=== PATIENT | female | born 1990 | race Caucasian/White ===

== ENCOUNTER 2016-03-26 12:40 | Inpatient (IN) | payer MEDICAID ==
[~2016-03-26] VITALS: Ht 157.4 cm; Wt 54.2 kg
[2016-03-26 14:11] LABS: BASO % 0.6 % (0.0-1.0); EOS # 0.1 10*3/uL (0.0-0.4); EOS % 1.9 % (1.0-4.0); HEMATOCRIT 39.3 % (37.0-47.0); HEMOGLOBIN 13.9 g/dl (12.0-16.0); LYMPH # 2.9 10*3/uL (1.3-4.4); LYMPH % 46.4 % (27.0-41.0); MEAN CELL VOLUME 89.9 fl (81.0-99.0); MEAN CORPUSCULAR HGB 31.8 pg (27.0-31.0); MEAN CORPUSCULAR HGB CONC 35.4 g/dl (33.0-37.0); MEAN PLATELET VOLUME 10.3 fl (9.6-12.3); MONO # 0.4 10*3/uL (0.1-1.0); NEUT # 2.8 10*3/uL (2.3-7.9); NEUT % 43.9 % (47.0-73.0); PLATELET COUNT AUTOMATED 199 10*3/uL (130-400); RED BLOOD COUNT 4.37 10*6/uL (4.10-5.10); RED CELL DISTRI WIDTH 12.2 % (0-14.5); WHITE BLOOD COUNT 6.3 10*3/uL (4.8-10.8)
[2016-03-26 14:22] LABS: PROTHROMBIN TIME 10.7 SECONDS (9.0-12.4)
[2016-03-26 14:33] LABS: ALBUMIN 3.9 gm/dl (3.1-4.5); ALKALINE PHOSPHATASE 66 U/L (45-117); BILIRUBIN, TOTAL 0.4 mg/dl (0.2-1.0); BUN 9 mg/dl (7-24); CARBON DIOXIDE 28 mmol/L (21-32); CHLORIDE 104 mmol/L (98-107); EST GLOM FILT AFRICAN AMERICAN > 60 ml/min; GLUCOSE 72 mg/dL (65-99); POTASSIUM 3.7 mmol/L (3.5-5.1); SGOT/AST 12 IU/L (3-35); SGPT/ALT 15 U/L (12-78); SODIUM 141 mmol/L (136-145)
[2016-03-26 14:33] LABS: BILIRUBIN NEGATIVE (NEGATIVE); BLOOD TRACE-INTACT (NEGATIVE); CLARITY SL CLOUDY (CLEAR); COLOR YELLOW (YELLOW); GLUCOSE NEGATIVE (NEGATIVE); KETONE NEGATIVE (NEGATIVE); LEUKO ESTERASE 1+ (NEGATIVE); NITRITE NEGATIVE (NEGATIVE); PH 5.5 (5.0-9.0); PROTEIN NEGATIVE (NEGATIVE); SPECIFIC GRAVITY 1.015 (1.005-1.030); UROBILINOGEN 0.2 E.U./dl (0.2-1.0)
[2016-03-26 14:43] LABS: BACTERIA 3+; EPITHELIAL CELLS 15-20; URINE REFLEX COMMENT YES (NO); WBC 16-20 wbc/hpf (0-5)
[2016-03-26 14:44] LABS: URINE AMPHETAMINES > 1000 (1000ng/ml); URINE BARBITURATES < 200 (200ng/ml); URINE COCAINE < 300 (300ng/ml)
[2016-03-26 15:45] VITALS: BP 90/52
[2016-03-26 20:00] VITALS: BP 101/60
[2016-03-27] VITALS: BP 78/53; BP 80/58
[2016-03-27 04:00] VITALS: BP 84/50
[2016-03-27 08:00] VITALS: BP 90/54
[2016-03-27 12:00] VITALS: BP 87/54
[2016-03-27 16:00] VITALS: BP 95/45
[2016-03-27 20:00] VITALS: BP 92/59
[2016-03-28] VITALS: BP 101/56
[2016-03-28 08:00] VITALS: BP 98/56
[2016-03-28 12:00] VITALS: BP 91/59
[2016-03-28] MEDS ORDERED: ZOFRAN 4 MG ED2 TAB PO (14:51)
[2016-03-28] MEDS ORDERED: CARBIDOPA/LEVOD1 TA1 PO (14:51)
[2016-03-28] MEDS ORDERED: ATARAX,VISTARIL50 MG PO (14:51)
[2016-03-28 16:00] VITALS: BP 103/52
[2016-03-28 20:00] VITALS: BP 95/67
[2016-03-29] VITALS: BP 92/48
[2016-03-29 06:09] LABS: BASO % 0.3 % (0.0-1.0); EOS # 0.1 10*3/uL (0.0-0.4); EOS % 1.4 % (1.0-4.0); HEMATOCRIT 43.2 % (37.0-47.0); HEMOGLOBIN 14.6 g/dl (12.0-16.0); LYMPH # 1.9 10*3/uL (1.3-4.4); LYMPH % 30.9 % (27.0-41.0); MEAN CELL VOLUME 92.1 fl (81.0-99.0); MEAN CORPUSCULAR HGB 31.1 pg (27.0-31.0); MEAN CORPUSCULAR HGB CONC 33.8 g/dl (33.0-37.0); MEAN PLATELET VOLUME 11.3 fl (9.6-12.3); MONO # 0.4 10*3/uL (0.1-1.0); MONO % 6.9 % (3.0-9.0); NEUT # 3.8 10*3/uL (2.3-7.9); NEUT % 60.3 % (47.0-73.0); PLATELET COUNT AUTOMATED 218 10*3/uL (130-400); RED BLOOD COUNT 4.69 10*6/uL (4.10-5.10); RED CELL DISTRI WIDTH 12.1 % (0-14.5); WHITE BLOOD COUNT 6.3 10*3/uL (4.8-10.8)
[2016-03-29 06:36] LABS: EST GLOM FILT AFRICAN AMERICAN > 60 ml/min
[2016-03-29 08:00] VITALS: BP 109/56
== END 2016-03-29 11:31 | disposition home or self-care (01) | DRG 897 ==
LOC: 4E 12:40
PROVIDERS: Internal Medicine
DX: F11.23 Opioid dependence with withdrawal (principal); F17.219 Nicotine dependence, cigarettes, with unspecified nicotine-induced disorders; F15.10 Other stimulant abuse, uncomplicated; F19.10 Other psychoactive substance abuse, uncomplicated; G25.81 Restless legs syndrome; F41.9 Anxiety disorder, unspecified; Z71.6 Tobacco abuse counseling; Z98.890 Other specified postprocedural states; Z81.1 Family history of alcohol abuse and dependence